=== PATIENT | female | born 1995 | race Caucasian/White ===

== ENCOUNTER 2018-03-03 08:36 | Emergency (ER) | payer BC ==
[2018-03-03] MEDS ORDERED: IBUPROFEN 600 MG TABLET PO ONE (09:00)
--- NOTE | 2018-03-03 09:36 | Emergency Department Record ---
History of Present Illness - General Chief Complaint: Ankle/Foot Injury Stated Complaint: FELL RIGHT LEG INJURY Time Seen by Provider: 03/03/18 08:51 Source: Patient, RN notes reviewed Mode of Arrival: Ambulatory - History of Present Illness Initial Comments: fell 40 minutes ago on the ice and right ankle pain and swelling on the lateral right ankle. No other injuries and she is a [employer] Onset/Timin -: Minutes(s) Type of Injury: Unknown Place: Street/outdoors Severity: Moderate Severity scale (1-10): 8 Improves With: Immobilization Worsens With: Movement, Weight bearing Context: Fall Associated Symptoms: Snap/pop sensation, Unable to bear weight - Related Data Previous Rx's Medication Instructions Recorded Hydrocodone/Acetaminophen [[place] 1 each PO Q4HR #14 tablet 03/03/18 5-325 Tablet] Ibuprofen [Motrin 600Mg] 600 mg PO Q6H #30 tablet 03/03/18 Allergies Allergy/AdvReac Type Severity Reaction Status Date / Time No Known Drug Allergies Allergy Verified 03/03/18 08:40 Travel Screening - Travel/Exposure Within Last 30 Days Have you traveled within the last 30 days?: No Review of Systems Reviewed: No additional complaints except as noted below Constitutional: Reports: As per HPI. Denies: Chills, Fever, Malaise, Night sweats, Weakness, Weight change Eyes: Reports: As per HPI. Denies: Eye discharge, Eye pain, Photophobia, Vision change ENT: Reports: As per HPI. Denies: Congestion, Dental pain, Ear pain, Epistaxis , Hearing loss, Throat pain Respiratory: Reports: As per HPI. Denies: Cough, Dyspnea, Hemoptysis, Stridor, Wheezes Cardiovascular: Reports: As per HPI. Denies: Arrhythmia, Chest pain, Dyspnea on exertion, Edema, Murmurs, Orthopnea, Palpitations, Paroxysmal nocturnal dyspnea, Rheumatic Fever, Syncope Endocrine: Reports: As per HPI. Denies: Fatigue, Heat or cold intolerance, Polydipsia, Polyuria Gastrointestinal: Reports: As per HPI. Denies: Abdominal pain, Constipation, Diarrhea, Hematemesis, Hematochezia, Melena, Nausea, Vomiting Genitourinary: Reports: As per HPI. Denies: Abnormal menses, Discharge, Dyspareunia, Dysuria, Frequency, Hematuria, Incontinence, Retention, Urgency Musculoskeletal: Reports: As per HPI, Other (ankle pain). Denies: Arthralgia, Back pain, Gout, Joint swelling, Myalgia, Neck pain Skin: Reports: As per HPI. Denies: Bruising, Change in color, Change in hair/ nails, Lesions, Pruritus, Rash Neurological: Reports: As per HPI. Denies: Abnormal gait, Confusion, Headache, Numbness, Paresthesias, Seizure, Tingling, Tremors, Vertigo, Weakness Psychiatric: Reports: As per HPI. Denies: Anxiety, Auditory hallucinations, Depression, Homicidal thoughts, Suicidal thoughts, Visual hallucinations Hematological/Lymphatic: Reports: As per HPI. Denies: Anemia, Blood Clots, Easy bleeding, Easy bruising, Swollen glands Past Medical History - SOCIAL HISTORY Smoking Status: Never smoker Alcohol Use: None Drug Use: None - RESPIRATORY Hx Respiratory Disorders: No - CARDIOVASCULAR Hx Cardio Disorders: No - NEURO Hx Neuro Disorders: No - GI Hx GI Disorders: No - Hx Genitourinary Disorders: No - ENDOCRINE Hx Endocrine Disorders: No - MUSCULOSKELETAL Hx Musculoskeletal Disorders: No - PSYCH Hx Psych Problems: No - HEMATOLOGY/ONCOLOGY Hx Hematology/Oncology Disorders: No Family Medical History Any Significant Family History?: No Physical Exam - General General Appearance: Alert, Oriented x3, Cooperative, Mild distress - Head Head exam: Normal inspection - Eye Eye exam: Normal appearance, PERRL Pupils: Normal accommodation - ENT ENT exam: Normal exam, Mucous membranes moist, Normal external ear exam, Normal orophraynx, TM's normal bilaterally Ear exam: Normal external inspection. negative: External canal tenderness Nasal Exam: Normal inspection. negative: Discharge, Sinus tenderness Mouth exam: Normal external inspection, Tongue normal Teeth exam: Normal inspection. negative: Dental caries Throat exam: Normal inspection. negative: Tonsillar erythema, Tonsillar exudate - Neck Neck exam: Normal inspection, Full ROM. negative: Tenderness - Respiratory Respiratory exam: Normal lung sounds bilaterally. negative: Respiratory distress - Cardiovascular Cardiovascular Exam: Regular rate, Normal rhythm, Normal heart sounds - GI/Abdominal GI/Abdominal exam: Soft, Normal bowel sounds. negative: Tenderness - Rectal Rectal exam: Deferred - exam: Deferred - Extremities Extremities exam: Joint swelling, Normal capillary refill, Tenderness - Back Back exam: Reports: Normal inspection, Full ROM. Denies: Muscle spasm, Rash noted, Tenderness - Neurological Neurological exam: Alert, Normal gait, Oriented X3, Reflexes normal - Psychiatric Psychiatric exam: Normal affect, Normal mood - Skin Skin exam: Dry, Intact, Normal color, Warm Course Vital Signs 03/03/18 08:42 Temperature 98.6 F Pulse Rate 101 H Respiratory 20 Rate Blood Pressure 126/96 Pulse Ox 96 Medical Decision Making - Data Complexity MDM Data: X-Ray Ordered and/or Reviewed (Distal lucencies subtle for fibular and tibial non displaced fractures, CT of ankle tibia fracture of ankle) Disposition Clinical Impression: Ankle fracture Qualifiers: Encounter type: initial encounter Fracture type: closed Laterality: right Qualified Code(s): S82.891A - Other fracture of right lower leg, initial encounter for closed fracture Disposition: Home, Self-Care Condition: (1) Good Instructions: Ankle Fracture (ED) Additional Instructions: follow up with primary Dr or orthopod Prescriptions: Hydrocodone/Acetaminophen [[place] 5-325 Tablet] 1 each PO Q4HR #14 tablet Ibuprofen [Motrin 600Mg] 600 mg PO Q6H #30 tablet Forms: Patient Portal Access Time of Disposition: 11:10 Quality - Quality Measures Quality Measures: N/A - Blood Pressure Screening Does Patient Have Any of the Following: No Blood Pressure Classification: Hypertensive Reading Systolic Measurement: 126 Diastolic Measurement: 96 Screening for High Blood Pressure: < Pre-Hypertensive BP, F/U Documented > [ [id number]] Pre-Hypertensive Follow-up Interventions: Referral to alternative/primary care provider.
[2018-03-03] MEDS ORDERED: HYDROCODONE/APAP 5/325MG TABLET PO ONE (11:11)
--- NOTE | 2018-03-04 10:57 | RADIOLOGY REPORT ---
EXAM: RIGHT ANKLE HISTORY: FALL WITH SUBSEQUENT LATERAL AND POSTERIOR ANKLE PAIN. TECHNIQUE: Three views of the right ankle were obtained. Comparison: None. FINDINGS: Best seen on the oblique view, there is suggestion of an obliquely oriented subtle linear lucency involving the metadiaphysis of the distal fibula. No obvious cortical defect. On lateral view, there is a linear lucency extending through the posterior aspect of the distal tibia. No appreciable ankle mortise widening. The talar dome appears intact. Ankle soft tissue swelling, greatest laterally possible tibiotalar joint effusion. IMPRESSION: 1. FINDINGS SUSPICIOUS FOR NONDISPLACED FRACTURES OF THE DISTAL FIBULA AND POSTERIOR DISTAL TIBIA. 2. ANKLE SOFT TISSUE SWELLING. JOB NUMBER: [id number] [facility]
--- NOTE | 2018-03-04 12:18 | CT SCAN REPORT ---
EXAM: NONCONTRAST CT OF THE RIGHT ANKLE HISTORY: INJURY WITH POSTERIOR AND LATERAL ANKLE PAIN. TECHNIQUE: Noncontrast CT of the right ankle was obtained. Comparison: Right ankle radiographs 03/03/18. FINDINGS: Lateral ankle soft tissue swelling. Acute vertically oriented fracture line extending through the posterior malleolus of the distal tibia, extending to the articular surface, without significant displacement. No intraarticular bodies are visualized. No additional fractures are seen. No dislocation or appreciable ankle mortise widening. The talar dome appears intact. Limited assessment of the tendons, ligaments, and other soft tissue structures on CT. No appreciable full thickness tendon disruption. There is a small tibiotalar joint effusion. IMPRESSION: 1. ACUTE, NONDISPLACED INTRAARTICULAR POSTERIOR MALLEOLUS FRACTURE. 2. NO ADDITIONAL ACUTE FRACTURES ARE SEEN. THE PREVIOUSLY QUESTIONED DISTAL FIBULAR FRACTURE WAS LIKELY ARTIFACTUAL IN NATURE. 3. LATERAL ANKLE SOFT TISSUE SWELLING. JOB NUMBER: [id number] [facility]
== END 2018-03-03 11:20 | disposition home or self-care (01) ==
LOC: ER 08:36
DX: S82.54XA Nondisplaced fracture of medial malleolus of right tibia, initial encounter for closed fracture (principal); W00.0XXA Fall on same level due to ice and snow, initial encounter; Y92.410 Unspecified street and highway as the place of occurrence of the external cause
CPT/HCPCS: 99283; 99284